=== PATIENT | male | born 1955 | race Caucasian/White ===

== ENCOUNTER 2016-08-16 03:27 | Inpatient (IN) | payer MEDICARE, OTHER ==
[~2016-08-16] VITALS: Ht 180.3 cm; Wt 130.2 kg
[~2016-08-16 03:27] MED LIST: ABILIFY; AMLO5TAB2 PO; AMOX250C PO; AMOX500C2 PO; ASP81CT PO; ASP81TEC PO; BP MED; CIPR500T78 PO; CITA-105 PO; CLN.2T PO; CLON-378 PO; DULO30CA PO; FURO20TA PO; FURO40TA4 PO; HCT25T PO; HYDR-3714 PO; HYDR118S10 PO; KCL10CCR PO; LEVO1CAP10 PO; LEVO80CA PO; LISI1TAB10 PO; LISI20TA PO; LORA1TAB PO; LSNP20T PO; METO100T2 PO; METO25TA2 PO; NFCHLORT25 PO; ONDA-42 SL; ONDN4T PO; POTA99TA15 PO; VILA40TA PO; [UNRECOGNIZED DRUG - CODE] PO
--- OUTSIDE RECORDS SUMMARY | 2016-08-16 03:35 | XMS REPORT ---
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
[2016-08-16] MEDS ORDERED: RT-ALBUTEROL SULF 2.5 MG/3 ML PRE-MIX VIAL ONE (03:38)
[2016-08-16] MEDS ORDERED: RT-ALBUTEROL SULF 2.5 MG/3 ML PRE-MIX VIAL INH STA (03:41)
[2016-08-16 03:57] LABS: BASOPHILS % (AUTO) 0 % (0-10); EOSINOPHILS # (AUTO) 0.2 10^3/uL (0.0-0.3); EOSINOPHILS % (AUTO) 1 % (0-10); LYMPHOCYTES # (AUTO) 2.2 X 10^3 (1.0-4.0); LYMPHOCYTES % (AUTO) 15 % (12-44); MEAN CORPUSCULAR HEMOGLOBIN 30 PG (25-34); MEAN CORPUSCULAR HGB CONC 35 G/DL (32-36); MEAN CORPUSCULAR VOLUME 84 FL (80-99); MEAN PLATELET VOLUME 9.6 FL (7.4-10.4); MONOCYTES # (AUTO) 0.8 X 10^3 (0.0-1.0); MONOCYTES % (AUTO) 5 % (0-12); NEUTROPHILS # (AUTO) 11.5 X 10^3 (1.8-7.8); NEUTROPHILS % (AUTO) 78 % (42-75); PLATELET COUNT 223 10^3/uL (130-400); RED BLOOD COUNT 5.17 10^6/uL (4.35-5.85); WHITE BLOOD COUNT 14.6 10^3/uL (4.3-11.0)
[2016-08-16 04:09] LABS: INR 1.1 (0.8-1.4); PROTHROMBIN TIME PATIENT 13.5 SEC (12.2-14.7)
[2016-08-16] MEDS ORDERED: CHLO25TA22 PO (04:09)
[2016-08-16] MEDS ORDERED: LISI40TA PO (04:09)
[2016-08-16] MEDS ORDERED: NFNEB10T PO (04:09)
[2016-08-16] MEDS ORDERED: FLUT1BLS IH (04:12)
[2016-08-16 04:16] LABS: BAND NEUTROPHILS 0 %; BASOPHILS % (MANUAL) 0 %; EOSINOPHILS % (MANUAL) 1 %; LYMPHOCYTES % (MANUAL) 5 %; NEUTROPHILS % (MANUAL) 84 %; REACTIVE LYMPHOCYTES 8 %
[2016-08-16 04:18] LABS: ALBUMIN 3.5 G/DL (3.2-4.5); CALCIUM 8.9 MG/DL (8.5-10.1); CREATININE SERUM 1.31 MG/DL (0.60-1.30); POTASSIUM 2.8 MMOL/L (3.6-5.0); TOTAL PROTEIN 6.3 G/DL (6.4-8.2)
--- NOTE | 2016-08-16 04:39 | ED Respiratory ---
General Chief Complaint: Respiratory Problems Stated Complaint: SOA Nursing Triage Note: Per [facility], pt called for SOA for 2nd night. Seen at [facility] today and rec'd Tori, not sure of CXR result. Pt has a temp between 101-102.0 to night. Mask placed on pt. Pt has not seen a Dr for 1 yr or over and reports he has been off all meds till all Rx's written 08/15/16 at [facility] Source: patient Exam Limitations: no limitations History of Present Illness Time seen by provider: 03:36 Initial Comments Here with report of shortness of air at night time mostly an worse tonight. Reports fever tonight. EMS was summoned because of shortness of air or cough. He was seen yesterday at the clinic and had chest x-ray done. He reports that the provider said he did not have CHF but is not sure if he has a pneumonia. Does admit to shortness of breath. Has history of COPD. He is intermittent with his visits with his doctor. Has new prescriptions for blood pressure medicines currently. Does report nausea but no vomiting. Denies diarrhea. Denies chest pain. Timing/Duration: getting worse Severity: moderate Prior Episodes/Possible Cause: occasional episodes Modifying Factors: Worse With Activity, Improves With Oxygen, Improves With Rest Associated Symptoms: No chest pain/soreness, fever/chills nasal congestion shortness of breath wheezing Allergies and Home Medications Allergies Coded Allergies: No Known Drug Allergies (Unverified , 05/12/13) Home Medications Chlorthalidone 25 Mg Tablet 12.5 MG PO DAILY (Reported) Fluticasone/Vilanterol 1 Each Blst.w.dev 1 EACH IH DAILY (Reported) Lisinopril 40 Mg Tablet 40 MG PO DAILY (Reported) Nebivolol HCl 10 Mg Tab 10 MG PO DAILY (Reported) Constitutional: see HPI chills fever EENTM: see HPI Respiratory: see HPI cough short of breath wheezing Cardiovascular: no symptoms reported Gastrointestinal: see HPINo constipation, No diarrhea Genitourinary: no symptoms reported Musculoskeletal: no symptoms reported Skin: no symptoms reported All Other Systems Reviewed Negative Unless Noted: Yes Past Ipkrvvh-Gwuecn-Kswdtn Hx Patient Social History Alcohol Use: Rarely Uses Recreational Drug Use: No Smoking Status: Never a Smoker 2nd Hand Smoke Exposure: No Recent Foreign Travel: No Contact w/Someone Who Travel: No Recent Infectious Disease Expo: No Recent Hopitalizations: No Immunizations Up To Date Tetanus Booster (TDap): Unknown PED Vaccines UTD: Yes Seasonal Allergies Seasonal Allergies: No Surgeries HX Surgeries: Yes (full dental extractions 12/31/13, right ankle) Respiratory Hx Respiratory Disorders: Yes Respiratory Disorders: COPD Cardiovascular Hx Cardiac Disorders: Yes ("had fluttering" in the past) Neurological Hx Neurological Disorders: No Reproductive System Hx Reproductive Disorders: No Sexually Transmitted Disease: No HIV/AIDS: No Genitourinary Hx Genitourinary Disorders: No Gastrointestinal Hx Gastrointestinal Disorders: No Musculoskeletal Hx Musculoskeletal Disorders: Yes Musculoskeletal Disorders: Arthritis Endocrine Hx Endocrine Disorders: No HEENT HX ENT Disorders: Yes (ALL TEETH REMOVED 12/31/13) Cancer Hx Cancer: No Psychosocial Hx Psychiatric Problems: Yes Behavioral Health Disorders: Depression Integumentary HX Skin/Integumentary Disorder: No Blood Transfusions Hx Blood Disorders: No Adverse Reaction to a Blood Tr: No Reviewed Nursing Assessment Reviewed/Agree w Nursing PMH: Yes Family Medical History Family Medial History: Family history: Cardiovascular disease 03 MOTHER ([place]) Myocardial infarction 03 MOTHER, Onset:80 ( FROM [place]) Physical Exam Vital Signs Vital Sign - Last 12Hours 08/16/16 03:35 Temp 102.6 Pulse 91 Resp 26 B/P 167/91 Pulse Ox 94 O2 Delivery Nasal Cannula O2 Flow Rate 3 Capillary Refill : Less Than 3 Seconds General Appearance: WD/WN mild distress HEENT: PERRL/EOMI pharynx normal Neck: full range of motion supple Respiratory: no accessory muscle use crackles (right basilar) wheezing (a few scattered) Cardiovascular: regular rate, rhythm no murmur Gastrointestinal: non tender soft Extremities: non-tender no pedal edema no calf tenderness Neurologic/Psychiatric: alert oriented x 3 Skin: normal color warm/dry Lymphatic: no adenopathy Focused Exam Lactic Acid Level Laboratory Tests Test 08/16/16 03:40 Alanine Aminotransferase (ALT/SGPT) 48U/L (0-55) Albumin 3.5G/DL (3.2-4.5) Alkaline Phosphatase 98U/L (40-136) Anion Gap 15MMOL/L (5-14) H Aspartate Amino Transf (AST/SGOT) 34U/L (5-34) BUN/Creatinine Ratio 13 Blood Urea Nitrogen 17MG/DL (7-18) Calcium Level 8.9MG/DL (8.5-10.1) Carbon Dioxide Level 27MMOL/L (21-32) Chloride Level 99MMOL/L (98-107) Creatinine 1.31MG/DL (0.60-1.30) H Estimat Glomerular Filtration Rate 55 Glucose Level 141MG/DL (70-105) H Lactic Acid Level 2.35MMOL/L (0.50-2.00) *H Potassium Level 2.8MMOL/L (3.6-5.0) L Sodium Level 141MMOL/L (135-145) Total Bilirubin 1.0MG/DL (0.1-1.0) Total Protein 6.3G/DL (6.4-8.2) L Progress/Results/Core Measures Results/Orders Lab Results Laboratory Tests Test 08/16/16 03:40 Range/Units Activated Partial Thromboplast Time 28 24-35 SEC Alanine Aminotransferase (ALT/SGPT) 48 0-55 U/L Albumin 3.5 3.2-4.5 G/DL Alkaline Phosphatase 98 40-136 U/L Anion Gap 15 H 5-14 MMOL/L Aspartate Amino Transf (AST/SGOT) 34 5-34 U/L BUN/Creatinine Ratio 13 Band Neutrophils 0 % Basophils # (Auto) 0.0 0.0-0.1 10^3/uL Basophils % (Manual) 0 % Basophils (%) (Auto) 0 0-10 % Blood Morphology Comment NORMAL Blood Urea Nitrogen 17 7-18 MG/DL Calcium Level 8.9 8.5-10.1 MG/DL Carbon Dioxide Level 27 21-32 MMOL/L Chloride Level 99 98-107 MMOL/L Creatinine 1.31 H 0.60-1.30 MG/DL Eosinophils # (Auto) 0.2 0.0-0.3 10^3/uL Eosinophils % (Manual) 1 % Eosinophils (%) (Auto) 1 0-10 % Estimat Glomerular Filtration Rate 55 Glucose Level 141 H 70-105 MG/DL Hematocrit 43 40-54 % Hemoglobin 15.3 13.3-17.7 G/DL INR Comment 1.1 0.8-1.4 Lactic Acid Level 2.35 *H 0.50-2.00 MMOL/L Lymphocytes # (Auto) 2.2 1.0-4.0 X 10^3 Lymphocytes % (Manual) 5 % Lymphocytes (%) (Auto) 15 12-44 % Mean Corpuscular Hemoglobin 30 25-34 PG Mean Corpuscular Hemoglobin Concent 35 32-36 G/DL Mean Corpuscular Volume 84 80-99 FL Mean Platelet Volume 9.6 7.4-10.4 FL Monocytes # (Auto) 0.8 0.0-1.0 X 10^3 Monocytes % (Manual) 2 % Monocytes (%) (Auto) 5 0-12 % Neutrophils # (Auto) 11.5 H 1.8-7.8 X 10^3 Neutrophils % (Manual) 84 % Neutrophils (%) (Auto) 78 H 42-75 % Platelet Count 223 130-400 10^3/uL Potassium Level 2.8 L 3.6-5.0 MMOL/L Prothrombin Time 13.5 12.2-14.7 SEC Reactive Lymphocytes 8 % Red Blood Count 5.17 4.35-5.85 10^6/uL Red Cell Distribution Width 14.0 10.0-14.5 % Sodium Level 141 135-145 MMOL/L Total Bilirubin 1.0 0.1-1.0 MG/DL Total Protein 6.3 L 6.4-8.2 G/DL White Blood Count 14.6 H 4.3-11.0 10^3/uL Micro Results Microbiology 08/16/16 Influenza Types A,B Antigen (THAO) - Final, Complete My Orders Orders-LIT EDWARDS MD Albuterol Pre-Mix Nebs (Rt) (Proventil P (08/16/16 03:38) Cbc With Automated Diff (08/16/16 03:41) Comprehensive Metabolic Panel (08/16/16 03:41) Lactic Acid Analyzer (08/16/16 03:41) Blood Culture (08/16/16 03:41) Sputum Culture (08/16/16 03:41) Ua Culture If Indicated (08/16/16 03:41) Protime With Inr (08/16/16 03:41) Partial Thromboplastin Time (08/16/16 03:41) Chest 1 View, Ap/Pa Only (08/16/16 03:41) O2 (08/16/16 03:41) Saline Lock/Iv-Start (08/16/16 03:41) Saline Lock/Iv-Start (08/16/16 03:41) Vital Signs Adult Sepsis Patie Q1HR (08/16/16 03:41) Remove Rings In Anticipation O (08/16/16 03:41) Influenza A And B Antigens (08/16/16 03:41) Albuterol Pre-Mix Nebs (Rt) (Proventil P (08/16/16 03:41) Svn Sm Volume Nebulizer Rt-Rfs (08/16/16 03:41) Manual Differential (08/16/16 03:40) Vital Signs/I&O Vital Sign - Last 12Hours 08/16/16 08/16/16 08/16/16 03:35 03:35 04:02 Temp 102.6 Pulse 91 Resp 26 B/P 167/91 Pulse Ox 94 94 96 O2 Delivery Nasal Cannula Nasal Cannula O2 Flow Rate 3 3 3 Blood Pressure Mean: 116 Progress Note : Progress Note Seen and evaluated. IV, labs, chest x-ray and UA ordered. Albuterol neb 2. This did help with his respiratory function. Lactic acid elevated at 2.35. Blood cultures pending. Levaquin 750 mg IV ordered. Blood pressure in good range to hypertensive but not hypotensive. No indication of septic shock. No indication of high volume fluid resuscitation at this time. Case discussed with Dr. Xiong at 0436. She accepts patient for admission, inpatient status. Due to patient's history of COPD and wheezing, Solu-Medrol 125 mg IV ordered. Discussed with patient about admission and he agrees with plan. Potassium 40 mEq by mouth given for noted hypokalemia. Diagnostic Imaging Diagonstic Imaging: Xray Plain Films/CT/US/NM/MRI: chest Comments Angelo pneumonia Departure Communication Time/Spoke to Admitting Phy: 04:36 Impression Impression: Primary Impression: Right lower lobe pneumonia Qualified Code: J18.1 - Lobar pneumonia, unspecified organism Additional Impression: Hypokalemia Disposition: ADMITTED INPATIENT Condition: Stable Decision to Admit Reason: Admit from ER (General) Decision to Admit/Date: Aug 16, 2016 Time/Decision to Admit Time: 04:36 Departure-Patient Inst. Referrals: [facility] (PCP/Family) Primary Care Physician LIT EDWARDS MD Aug 16, 2016 04:38
[2016-08-16] MEDS ORDERED: methylPREDNISolone 125 MG (Solu-MEDROL) VIAL IV STA (04:40)
[2016-08-16] MEDS ORDERED: LEVOFLOXACIN 750 MG/150 ML IV 150 ML IV STA (04:40)
[2016-08-16] MEDS ORDERED: KCL 10 MEQ TAB (MICRO K) PO ONE (05:15)
[2016-08-16] MEDS ORDERED: NS IV 1000 ML 1,000 ML ONE (05:38)
--- NOTE | 2016-08-16 06:10 | Diagnostic Imaging Report ---
INDICATION: Dyspnea and fever. 0427 hours Portable upright view of the chest is obtained. FINDINGS: Since 02/02/2014, there is persistent mild cardiomegaly. There has been development of perihilar atelectasis and/or pneumonitis, greater on the right. No pneumothorax or focal consolidation is seen. IMPRESSION: Right perihilar atelectasis and/or pneumonitis. Dictated by: Dictated on workstation # [id number]
[2016-08-16] MEDS ORDERED: NS IV 1000 ML 1,000 ML IV SCH ×2 (06:15→14:30)
[2016-08-16 06:34] LABS: BILIRUBIN,URINE NEGATIVE (NEGATIVE); KETONES,URINE NEGATIVE (NEGATIVE); LEUKOCYTE ESTERASE ,URINE NEGATIVE (NEGATIVE); NITRITE,URINE NEGATIVE (NEGATIVE); PH,URINE 5 (5-9); PROTEIN,URINE 3+ (NEGATIVE); UROBILINOGEN,URINE NORMAL (NORMAL)
[2016-08-16 06:44] LABS: HYALINE CASTS, URINE 0-2 /LPF; WBC,URINE 0-2 /HPF
[2016-08-16] MEDS ORDERED: CATHETER FLUSH 10 ML SYR IV PRN (06:45)
[2016-08-16] MEDS: NS IV 1000 ML 1,000 ML IV SCH ×6 (06:52→21:03)
[2016-08-16 08:00] VITALS: BP 140/69
[2016-08-16] MEDS ORDERED: RT-ALBUTEROL/IPRATROPIUM 3 ML (DUONEB) VIAL INH PRN ×2 (08:00→17:30)
[2016-08-16] MEDS ORDERED: FLU TRIvalent (5 YOA+) 2016-17 (AFLURIA) 0.5 ML IM ONE (08:45)
[2016-08-16] MEDS: POTASSIUM CL 10MEQ/50ML IVPB 50 ML IV SCH ×4 (10:25→18:33)
[2016-08-16] MEDS ORDERED: OSELTAMIVIR 30 MG (TAMIFLU) BOX OF 10 PO SCH (11:15)
[2016-08-16] MEDS ORDERED: VANCOMYCIN INJECTION 1,000 MG in NS (IVPB) 250 ML IV SCH (11:15)
[2016-08-16] MEDS ORDERED: VANCOMYCIN 2000 MG/NS 500 ML IVPB IV NR ×2 (11:21)
[2016-08-16 11:55] LABS: BASOPHILS % (AUTO) 0 % (0-10); EOSINOPHILS % (AUTO) 0 % (0-10); LYMPHOCYTES # (AUTO) 0.5 X 10^3 (1.0-4.0); LYMPHOCYTES % (AUTO) 5 % (12-44); MEAN CORPUSCULAR HEMOGLOBIN 29 PG (25-34); MEAN CORPUSCULAR HGB CONC 35 G/DL (32-36); MEAN CORPUSCULAR VOLUME 84 FL (80-99); MEAN PLATELET VOLUME 9.6 FL (7.4-10.4); MONOCYTES # (AUTO) 0.1 X 10^3 (0.0-1.0); MONOCYTES % (AUTO) 1 % (0-12); NEUTROPHILS # (AUTO) 10.9 X 10^3 (1.8-7.8); NEUTROPHILS % (AUTO) 94 % (42-75); PLATELET COUNT 202 10^3/uL (130-400); RED BLOOD COUNT 4.93 10^6/uL (4.35-5.85); WHITE BLOOD COUNT 11.5 10^3/uL (4.3-11.0)
[2016-08-16 12:00] VITALS: BP 139/66
[2016-08-16 12:17] LABS: CALCIUM 8.2 MG/DL (8.5-10.1); CREATININE SERUM 1.4 MG/DL (0.60-1.30); POTASSIUM 3.4 MMOL/L (3.6-5.0)
[2016-08-16] MEDS: CEFEPIME INJECTION 2,000 MG in NS (IVPB) 50 ML IV SCH ×2 (12:29→23:42)
[2016-08-16 14:09] LABS: CALCIUM 8.2 MG/DL (8.5-10.1); CREATININE SERUM 1.34 MG/DL (0.60-1.30); POTASSIUM 3.6 MMOL/L (3.6-5.0)
[2016-08-16] MEDS: methylPREDNISolone 125 MG (Solu-MEDROL) VIAL IVP SCH (15:23)
--- NOTE | 2016-08-16 15:37 | History & Physicial (CHS) ---
KANWAL GALVEZ MED STUDENT 08/16/16 1537: HPI History of Present Illness: 60 yo male w/pmh of HTN, COPD comes to ED for SOB, orthopnea and severe cough x 2 days. Went to clinic Monday morning and had CXR that was not suggestive of pneumonia and had Symbicort switched to Breo and BP medications increase. Patient continued with worsening dyspnea and admitted for RLL pneumonia. Today he reports no improvement with SOB when walking, wheezing, non productive cough , constipation that is chronic and abdominal distention with early satiety. He denies headache, sore throat or ear pain, chest pain, melena or tarry stools, changes in urination or dysuria or LE edema. Source: patient Exam Limitations: no limitations Date seen by provider: Aug 16, 2016 Time seen by provider: 11:00 Attending Physician Dora Oleary MD / Kanwal Galvez MD PGY 2 Family Medicine [facility] PCP juanpablo,[facility] Date of Admission Aug 16, 2016 at 04:40 Home Medications Home Medications Reviewed patient Home Medication Reconciliation Form Allergies Coded Allergies: No Known Drug Allergies (Unverified , 05/12/13) NJZ-[id number]-Vficxl Hx Patient Social History Alcohol Use: Denies Use Recreational Drug Use: No Smoking Status: Never a Smoker 2nd Hand Smoke Exposure: No Recent Foreign Travel: No Contact w/other who traveled: No Recent Hopitalizations: No Recent Infectious Disease Expo: No Physical Abuse Screen: No Sexual Abuse: No Immunizations Up To Date Tetanus Booster (TDap): Unknown Past Medical History Hypertension Dysthymia Depressive disorder Anxiety Hypokalemia Abnormal liver function testing Bilateral tinnitus Family Medical History Family History: Family history: Cardiovascular disease 03 MOTHER ([place]) Myocardial infarction 03 MOTHER, Onset:80 ( FROM [place]) No Family History of: Abdominal aortic aneurysm Dmitri's disease Alcoholism Aphasia Cancer Cancer of colon Cataract Chest pain Congenital heart disease Congestive heart failure Cystic fibrosis Dementia Dysphagia Family history: Allergy Family history: Alzheimer's disease Family history: Arthritis Family history: Asthma Family history: Breast disease Family history: Coronary thrombosis Family history: Diabetes mellitus Family history: Gastrointestinal disease Family history: Glaucoma Family history: Hypertension Family history: Osteoporosis Family history: Thyroid disorder Headache Hearing loss Heart disease Hereditary disease History of - anemia History of - disorder History of - respiratory disease History of drug abuse Human immunodeficiency virus (HIV) seropositivity Hypercholesterolemia Infertile Kidney disease Malignant neoplasm of lung Not obtainable due to adoption Parkinson's disease Prostate cancer Psychotic disorder Seizure disorder Stroke Tuberculosis Visual impairment Review of Systems ([facility]) Constitutional: chills fever malaise EENTM: tearing Respiratory: cough orthopnea short of breath wheezing Cardiovascular: palpitations Gastrointestinal: constipation loss of appetite Genitourinary: no symptoms reported Musculoskeletal: no symptoms reported Skin: no symptoms reported Psychiatric/Neurological: No Symptoms Reported All Other Systems Reviewed Negative Unless Noted: Yes Physical Exam-([facility]) Physical Exam Vital Signs VS - Last 72 Hours, by Label 08/16/16 08/16/16 08/16/16 08/16/16 03:35 03:35 04:02 05:11 Temp 102.6 101.3 Pulse 91 90 Resp 26 24 B/P 167/91 Pulse Ox 94 94 96 93 O2 Delivery Nasal Cannula Nasal Cannula O2 Flow Rate 3 3 3 3 08/16/16 08/16/16 08/16/16 08/16/16 05:11 05:20 07:53 08:00 Temp 101.3 99.1 Pulse 90 76 Resp 24 20 B/P 160/78 140/69 Pulse Ox 93 93 92 O2 Delivery Nasal Cannula Nasal Cannula Nasal Cannula O2 Flow Rate 3 2.00 2.00 08/16/16 08/16/16 08:00 12:00 Temp 98.0 Pulse 75 Resp 24 B/P 139/66 Pulse Ox 93 93 O2 Delivery Room Air Nasal Cannula O2 Flow Rate 2.00 Capillary Refill : NONELess Than 3 Seconds General Appearance: moderate distress obese Eyes: Bilateral Eye Normal Inspection HEENT: pharyngeal erythema Neck: full range of motion supple Respiratory: chest non-tender decreased breath sounds (Bilateral upper and mid lung martinez) wheezing (Right lower lung martinez) expiration Cardiovascular: regular rate, rhythm no edema Gastrointestinal: distended Back: no CVA tenderness Extremities: no pedal edema no calf tenderness Neurologic/Psychiatric: no motor/sensory deficits alert normal mood/affect oriented x 3 Skin: warm/dry damp Assessment/Plan Assessment/Plan Admission Dx 1. RLL pnemonia with Sepsis 2. COPD 3. HTN Plan 1. RLL pneumonia with sepsis - CXR with possible developing pneumonia - LA increased from admission to 8 -> 6 after IVF bolus - Blood cultures pending - s/p Levaquin - High risk due to COPD Plan - Continue Sepsis protocol - 30 cc/kg fluid bolus then maintenance IVF - Broaden Abx from Levaquin to include Cefepime and Vancomycin - Will add Tamiflu due to risk, sepsis and worsening cough, Influenza spot test can be negative in developing infection - f/u blood cultures - Sputum cultures ordered and in process of collection - VS per protocol - Repeat BMP now and will reevaluate in afternoon - Trend LA q 2hrs until normal 2. COPD - s/p IV steroids - RT protocol - continue Breo and Albuterol PRN - Pulmonary hygiene 3. HTN - Telemetry - Cont ACCOUNT MANAGEMENT ASSISTANT medications FEN: IVF,replace lytes as needed, Cardiac diet as tolerated Full Code DVT prophylaxis. Diagnosis/Problems: Clinical Quality Measures DVT/VTE Risk/Contraindication: Risk Factor Score Per Nursin RFS Level Per Nursing on Admit: 4+=Very High Copy Copies To 1: DORA OLEARY MD, BETHANY N MD 08/16/162039: Home Medications Allergies Coded Allergies: No Known Drug Allergies (Unverified , 05/12/13) UUS-Qrpxvn-Dcwahk Hx Family Medical History Family History: Family history: Cardiovascular disease 03 MOTHER ([place]) Myocardial infarction 03 MOTHER, Onset:80 ( FROM [place]) No Family History of: Abdominal aortic aneurysm [place]'s disease Alcoholism Aphasia Cancer Cancer of colon Cataract Chest pain Congenital heart disease Congestive heart failure Cystic fibrosis Dementia Dysphagia Family history: Allergy Family history: Alzheimer's disease Family history: Arthritis Family history: Asthma Family history: Breast disease Family history: Coronary thrombosis Family history: Diabetes mellitus Family history: Gastrointestinal disease Family history: Glaucoma Family history: Hypertension Family history: Osteoporosis Family history: Thyroid disorder Headache Hearing loss Heart disease Hereditary disease History of - anemia History of - disorder History of - respiratory disease History of drug abuse Human immunodeficiency virus (HIV) seropositivity Hypercholesterolemia Infertile Kidney disease Malignant neoplasm of lung Not obtainable due to adoption Parkinson's disease Prostate cancer Psychotic disorder Seizure disorder Stroke Tuberculosis Visual impairment Physical Exam-([facility]) Physical Exam Vital Signs VS - Last 72 Hours, by Label 08/16/16 08/16/16 08/16/16 08/16/16 03:35 03:35 04:02 05:11 Temp 102.6 101.3 Pulse 91 90 Resp 26 24 B/P 167/91 Pulse Ox 94 94 96 93 O2 Delivery Nasal Cannula Nasal Cannula O2 Flow Rate 3 3 3 3 08/16/16 08/16/16 08/16/16 08/16/16 05:11 05:20 07:53 08:00 Temp 101.3 99.1 Pulse 90 76 Resp 24 20 B/P 160/78 140/69 Pulse Ox 93 93 92 O2 Delivery Nasal Cannula Nasal Cannula Nasal Cannula O2 Flow Rate 3 2.00 2.00 08/16/16 08/16/16 08/16/16 08/16/16 08:00 12:00 16:00 16:51 Temp 98.0 97.9 Pulse 75 73 Resp 24 22 B/P 139/66 159/74 Pulse Ox 93 93 92 87 O2 Delivery Room Air Nasal Cannula Nasal Cannula O2 Flow Rate 2.00 2.00 08/16/16 08/16/16 16:51 18:42 Pulse Ox 87 92 O2 Flow Rate 3.00 Copy Copies To 1: DORA OLEARY MD Supervisory-Addendum Brief Supervisory Addendum Patient seen and evaluated with Geneva Galvez MD, PGY2. Agree with documentation with changes/additions as noted: 60 yo male admitted with suspected pneumonia and sepsis, however at 1015 lactic acid up to 8 suggesting severe sepsis. He had already been started on 30 ml/kg fluid bolus (3.7 liters) after LA slightly increased at 6 am. Lactic acid trending down with the fluid bolus and antibiotics were broadened given the significant worsening and Tamiflu added due to symptoms and fever suggestive of flu and CXR not showing clear pneumonia. KANWAL GALVEZ MED STUDENT Aug 16, 2016 15:37 DORA OLEARY MD Aug 16, 2016 20:40
[2016-08-16 16:00] VITALS: BP 159/74
[2016-08-16] MEDS: RT-ALBUTEROL/IPRATROPIUM 3 ML (DUONEB) VIAL INH SCH ×2 (18:41→21:57)
[2016-08-16 20:00] VITALS: BP 151/80
[2016-08-16 22:59] LABS: ABG BASE EXCESS -3.7 MMOL/L (-2.5-2.5); ABG HCO3 21 MMOL/L (23-27); ABG OXYGEN SATURATION 98 % (94-100); ABG PCO2 35 MMHG (35-45); ABG PH 7.38 (7.37-7.43); ABG PO2 87 MMHG (79-93); ABG TCO2 21.8 MMOL/L (21.0-31.0)
[2016-08-16 23:00] LABS: ALLENS TEST YES-POS; PATIENT TEMP 97.6
[2016-08-16] MEDS: OSELTAMIVIR 75 MG (TAMIFLU) BOX OF 10 PO SCH (23:43)
[2016-08-17] VITALS (20 sets, daily range): BP systolic 90–226; BP diastolic 50–111
[2016-08-17] MEDS: VANCOMYCIN 1500 MG/NS 500 ML IVPB IV SCH ×6 (01:25→23:02)
[2016-08-17] MEDS: RT-ALBUTEROL/IPRATROPIUM 3 ML (DUONEB) VIAL INH SCH ×6 (02:09→22:15)
[2016-08-17 04:33] LABS: BASOPHILS % (AUTO) 0 % (0-10); EOSINOPHILS % (AUTO) 0 % (0-10); LYMPHOCYTES % (AUTO) 5 % (12-44); MEAN CORPUSCULAR HEMOGLOBIN 29 PG (25-34); MEAN CORPUSCULAR HGB CONC 35 G/DL (32-36); MEAN CORPUSCULAR VOLUME 85 FL (80-99); MEAN PLATELET VOLUME 9.8 FL (7.4-10.4); MONOCYTES % (AUTO) 5 % (0-12); NEUTROPHILS # (AUTO) 16.7 X 10^3 (1.8-7.8); NEUTROPHILS % (AUTO) 89 % (42-75); PLATELET COUNT 221 10^3/uL (130-400); RED BLOOD COUNT 4.73 10^6/uL (4.35-5.85); RED CELL DISTRIBUTION WIDTH 14.2 % (10.0-14.5); WHITE BLOOD COUNT 18.7 10^3/uL (4.3-11.0)
[2016-08-17] MEDS ORDERED: D5W IV SCH (04:40)
[2016-08-17] MEDS ORDERED: LEVOFLOXACIN 750 MG/150 ML IV SCH (04:40)
[2016-08-17 05:01] LABS: ALANINE AMINOTRANSFERASE 43 U/L (0-55); ALBUMIN 3.3 G/DL (3.2-4.5); ANION GAP 12 MMOL/L (5-14); ASPARTATE AMINO TRANSFERASE 38 U/L (5-34); BILIRUBIN,TOTAL 0.8 MG/DL (0.1-1.0); BLOOD UREA NITROGEN 19 MG/DL (7-18); BUN/CREATININE RATIO 16; CALCIUM 8.5 MG/DL (8.5-10.1); CARBON DIOXIDE 22 MMOL/L (21-32); CHLORIDE 109 MMOL/L (98-107); CREATININE SERUM 1.21 MG/DL (0.60-1.30); GFR ESTIMATED > 60; GLUCOSE 175 MG/DL (70-105); POTASSIUM 3.5 MMOL/L (3.6-5.0); SODIUM 143 MMOL/L (135-145); TOTAL PROTEIN 6.5 G/DL (6.4-8.2)
[2016-08-17 05:25] LABS: BAND NEUTROPHILS 3 %; BASOPHILS % (MANUAL) 0 %; EOSINOPHILS % (MANUAL) 0 %; LYMPHOCYTES % (MANUAL) 6 %; NEUTROPHILS % (MANUAL) 84 %; REACTIVE LYMPHOCYTES 2 %
[2016-08-17] MEDS: methylPREDNISolone 125 MG (Solu-MEDROL) VIAL IVP SCH ×3 (05:33→18:13)
[2016-08-17] MEDS ORDERED: RT-ADVAIR HFA 115/21 MCG PER PUFF IH SCH (08:00)
[2016-08-17] MEDS: NS IV 1000 ML 1,000 ML IV SCH ×3 (09:15→23:49)
[2016-08-17] MEDS ORDERED: KCL 20 MEQ TAB (K-DUR) PO NR (09:40)
[2016-08-17] MEDS ORDERED: FUROSEMIDE 40 MG/4 ML INJ (LASIX) IVP NR (09:40)
[2016-08-17] MEDS: CHLORTHALIDONE 25 MG (HYGROTON) TABLET PO SCH (09:44)
[2016-08-17] MEDS: NEBIVOLOL 5 MG TAB (BYSTOLIC) PO SCH (09:45)
[2016-08-17] MEDS: lisINopril 20 MG (ZESTRIL) TAB PO SCH (09:45)
[2016-08-17] MEDS: OSELTAMIVIR 75 MG (TAMIFLU) BOX OF 10 PO SCH ×2 (09:45→22:07)
[2016-08-17] MEDS: CEFEPIME INJECTION 2,000 MG in NS (IVPB) 50 ML IV SCH ×2 (09:45→22:07)
[2016-08-17] MEDS ORDERED: TROUGH ORDER-PHARMACY XX NR (10:00)
[2016-08-17] MEDS ORDERED: CATHETER FLUSH 10 ML SYR IV PRN (10:45)
[2016-08-17] MEDS ORDERED: IOHEXOL 350 MG/ML 150 ML (OMNIPAQUE 350) VIAL IV ONE (10:45)
[2016-08-17] MEDS ORDERED: NS 100 ML (IVPB) BAG IV ONE (10:45)
[2016-08-17] MEDS ORDERED: LORazepam INJ 2 MG/ML (ATIVAN) VIAL IVP ONE (11:15)
--- NOTE | 2016-08-17 11:59 | Diagnostic Imaging Report ---
PROCEDURE: CT angiography of the chest with contrast. TECHNIQUE: Multiple contiguous axial images were obtained through the chest after uneventful bolus administration of intravenous contrast. Reconstructed CTA MIP acquisitions were also performed. INDICATION: Worsening shortness of breath. Hemoptysis. CONTRAST: 14 mL of Omnipaque 350 was administered intravenously. COMPARISON: 02/02/2014. FINDINGS: The pulmonary arteries are well opacified. There is, however, respiratory motion artifact due to the patient's inability to hold his breath well for the exam as well as suboptimal evaluation of the distal subsegmental branches, particularly in the lung bases. The central pulmonary arteries to the lobar and most of the segmental branches demonstrate satisfactory opacification with no evidence of pulmonary embolism. The thoracic aorta is normal in caliber. There is no dissection. The heart size is mildly enlarged with no significant pericardial effusion. There are bilateral small pleural effusions, more prominent on the right side. There are bilateral perihilar patchy groundglass opacities seen with relative sparing of the periphery of the lungs. The abnormality also involves the bases and upper lung zones, more prominent on the right side. The findings could relate to pulmonary hemorrhage, edema, or infection. There is no mediastinal mass and no significantly enlarged mediastinal or hilar lymph nodes. No axillary lymphadenopathy. There is a partially visualized cystic lesion in the right kidney measuring 2.8 cm with a similar finding on the 2013 exam. There is diffuse decreased attenuation in the liver, compatible with diffuse fatty infiltration. The osseous structures appear grossly unremarkable. IMPRESSION: 1. Respiratory motion artifact prevents accurate evaluation of the distal branches, particularly at the subsegmental level. No evidence of pulmonary embolism in the central pulmonary artery branches. 2. Bilateral predominantly groundglass opacities are seen which may relate to pulmonary hemorrhage, edema, or atypical infection. 3. Bilateral small pleural effusions, slightly larger on the right side. 4. Hepatic steatosis. Dictated by: Dictated on workstation # [id number]
[2016-08-17] MEDS ORDERED: MIDAZOLAM 5 MG/5 ML (VERSED) VIAL IJ ONE (12:00)
[2016-08-17] MEDS ORDERED: SUCCINYLCHOLINE INJ 100 MG/5 ML SYR INJ ONE (12:00)
[2016-08-17] MEDS ORDERED: ROCURONIUM 50 MG/5 ML (ZEMURON) VIAL IV ONE (12:00)
[2016-08-17 12:49] LABS: ABG BASE EXCESS -3.8 MMOL/L (-2.5-2.5); ABG HCO3 20 MMOL/L (23-27); ABG OXYGEN SATURATION 95 % (94-100); ABG PCO2 35 MMHG (35-45); ABG PH 7.38 (7.37-7.43); ABG PO2 72 MMHG (79-93); ABG TCO2 21.4 MMOL/L (21.0-31.0)
[2016-08-17 12:50] LABS: ALLENS TEST POSITIVE; PATIENT TEMP 99.3
--- NOTE | 2016-08-17 12:55 | Progress Note (SOAP) ---
JEANETTE GALVEZ MED STUDENT 08/17/16 1255: Subjective Subjective/Events-last exam Patient with BPAP and feeling worse today with increase in cough, blood tinged sputum, SOB and dry mouth. He was not able to sleep much last night due to bipap and increased WOB. Distention is about baseline with a normal brown BM yesterday. He denies headache, visual changes, chest pain or pleuritic pain, LE edema. Date seen by provider: Aug 17, 2016 Time seen by provider: 10:12 Review of Systems General: Chills Fatigue Malaise Appetite (decreased) HEENT: No Head Aches, No Visual Changes, No Sinus Congestion, Post Nasal Drip Sore Throat Pulmonary: Dyspnea Cough Cardiovascular: : OrthopneaNo: Chest Pain, Edema, Lt Headedness Gastrointestinal: No: Abdominal Pain, Constipation, Diarrhea, Nausea, Vomiting Genitourinary: No Dysuria, No Frequency, No Incontinence Musculoskeletal: : back pain Neurological: No: Confusion, Incoordination, Weakness Objective Exam Last Set of Vital Signs Vital Signs Date Time Temp Pulse Resp B/P Pulse Ox O2 Delivery O2 Flow Rate FiO2 08/17/16 09:43 92 26 93 50.00 08/17/16 08:00 98.5 174/94 NIV/Bilevel 08/17/16 06:45 40 Capillary Refill : NONELess Than 3 Seconds I&O Intake and Output 08/17/16 00:00 Intake Total 6210 ml Output Total 700 ml Balance 5510 ml Intake Oral 1440 ml IV Total 4770 ml Output Urine Total 700 ml # Voids 2 General: Alert, Oriented X3, Cooperative, Moderate Distress HEENT: Atraumatic, Other (dry mucous membranes) Neck: Supple Lungs: Other (Coarse breath sounds, crackles in bilateral bases and exp wheezing in middle lung martinez bilateral) Heart: Regular Rate Abdomen: Normal Bowel Sounds, Soft, Other (distended with no tenderness) Extremities: No Edema Skin: Other (bilateral upper arm redness, flushing with no rash or petechia noted) Neuro: Normal Gait, Normal Speech, Normal Tone, Sensation Intact Psych/Mental Status: Mental Status NL, Mood NL Results/Procedures Lab Laboratory Tests 08/16/16 13:47: Anion Gap 15H, BUN/Creatinine Ratio 12, Blood Urea Nitrogen 16, Calcium Level 8.2L, Carbon Dioxide Level 18L, Chloride Level 105, Creatinine 1.34H, Estimat Glomerular Filtration Rate 54, Glucose Level 352H, Lactic Acid Level 4.40*H, Potassium Level 3.6, Sodium Level 138 08/16/16 21:44: Lactic Acid Level 3.54*H 08/16/16 22:55: Mati Test YES-POS, Arterial Blood Base Excess -3.7L, Arterial Blood HCO3 21L, Arterial Blood Oxygen Saturation 98, Arterial Blood Partial Pressure CO2 35, Arterial Blood Partial Pressure O2 87, Arterial Blood Total CO2 21.8, Arterial Blood pH 7.38, Blood Gas Inspired Oxygen 40% BIPAP, Blood Gas Patient Temperature 97.6, Blood Gas Puncture Site LRAD, Blood Gas Ventilator Setting NO 08/16/16 23:40: Lactic Acid Level 3.88*H 08/17/16 02:10: Lactic Acid Level 2.74*H 08/17/16 04:13: Lactic Acid Level 2.85*H, Alanine Aminotransferase (ALT/SGPT) 43, Albumin 3.3, Alkaline Phosphatase 74, Anion Gap 12, Aspartate Amino Transf (AST/SGOT) 38H, BUN/Creatinine Ratio 16, Band Neutrophils 3, Basophils # (Auto) 0.0, Basophils % (Manual) 0, Basophils (%) (Auto) 0, Blood Morphology Comment NORMAL, Blood Urea Nitrogen 19H, Calcium Level 8.5, Carbon Dioxide Level 22, Chloride Level 109H, Creatinine 1.21, Eosinophils # (Auto) 0.0, Eosinophils % (Manual) 0, Eosinophils (%) (Auto) 0, Estimat Glomerular Filtration Rate > 60, Glucose Level 175H, Hematocrit 40, Hemoglobin 13.9, Lymphocytes # (Auto) 1.0, Lymphocytes % (Manual) 6, Lymphocytes (%) (Auto) 5L, Mean Corpuscular Hemoglobin 29, Mean Corpuscular Hemoglobin Concent 35, Mean Corpuscular Volume 85, Mean Platelet Volume 9.8, Monocytes # (Auto) 1.0, Monocytes % (Manual) 5, Monocytes (%) (Auto) 5, Neutrophils # (Auto) 16.7H, Neutrophils % (Manual) 84, Neutrophils (%) (Auto) 89H, Platelet Count 221, Potassium Level 3.5L, Reactive Lymphocytes 2, Red Blood Count 4.73, Red Cell Distribution Width 14.2, Sodium Level 143, Total Bilirubin 0.8, Total Protein 6.5, White Blood Count 18.7H 08/17/16 09:57: Lactic Acid Level 3.75*H, Vancomycin Level Trough 17.2 08/17/16 12:25: 08/17/16 12:43: Microbiology 08/16/16 Blood Culture - Preliminary, Resulted No growth 08/16/16 Influenza Types A,B Antigen (THAO) - Final, Complete Radiology CT chest ordered Vital Signs Date Time Temp Pulse Resp B/P Pulse Ox O2 Delivery O2 Flow Rate FiO2 08/17/16 09:43 92 26 93 50.00 08/17/16 08:12 103 30 88 40.00 08/17/16 08:00 98.5 75 26 174/94 95 NIV/Bilevel 08/17/16 06:45 96 40 08/17/16 06:30 79 25 95 40.00 08/17/16 05:29 79 30 96 40.00 08/17/16 04:00 97.5 76 26 155/77 97 NIV/Bilevel 08/17/16 03:58 79 27 96 40.00 08/17/16 02:09 85 20 94 40.00 08/17/16 00:16 31 40.00 08/17/16 00:00 98.5 78 25 166/81 97 NIV/Bilevel 08/16/16 22:55 24 40.00 08/16/16 21:59 90 5.00 08/16/16 21:00 Nasal Cannula 5.00 08/16/16 20:00 98.4 86 22 151/80 94 Nasal Cannula 2.00 08/16/16 18:42 92 08/16/16 16:51 87 3.00 08/16/16 16:51 87 08/16/16 16:00 97.9 73 22 159/74 92 Nasal Cannula 2.00 I & O 08/17/16 07:00 Intake Total 7325 ml Output Total 1300 ml Balance 6025 ml Assessment/Plan Assessment/Plan Admission Dx 1. RLL pnemonia with Sepsis 2. COPD 3. HTN Plan 1. RLL pneumonia with sepsis - CXR with possible developing pneumonia - LA increased from admission to 8 -> 2 after IVF bolus yesterday - Blood cultures pending (NGTD) - s/p Levaquin in ED - 08/16 Cefepime, Vancomycin started and continue Levaquin - 08/16 Tamiflu started to cover for atypical agents - High risk due to COPD Plan - Continue Sepsis protocol - cont maintenance IVF - once dose of 20 mg IV Lasix - cont Levaquin, Cefepime, Vancomycin and Tamiflu - Will order Urine Strep ag and Urine Legionella ag (1-2 days for results) - Will order Respiratory Virus Panel - f/u blood cultures - Sputum cultures ordered and in process of collection - VS per protocol - Daily BMP - Trend LA q 2hrs until normal - CT chest ordered for further evaluation of blood tinged sputum - Pt will be moved to ICU as in morning rounds continued with increased WOB - KUB to r/o GI cause for exacerbated lactic acidosis given constipation on admission 2. COPD - s/p IV steroids and will increase dose today - RT protocol - continue Breo and Albuterol PRN - Pulmonary hygiene 3. HTN - Telemetry - Cont UROLOGIST PHYSICIAN medications FEN: IVF below maintenance dose,replace lytes as needed, Cardiac diet as tolerated Full Code DVT prophylaxis. Patient seen and discussed with Dr. Oleary Diagnosis/Problems: Clinical Quality Measures DVT/VTE Risk/Contraindication: Risk Factor Score Per Nursin RFS Level Per Nursing on Admit: 4+=Very High DORA OLEARY MD 08/17/16 1450: Supervisory-Addendum Brief Supervisory Addendum Patient seen and personally examined today with PGY-2 Geneva Galvez MD. This morning on my exam he was in moderate distress with marked increased work of breathing and tachycardia while on Bipap with 50% FiO2. Lung sounds revealed bilateral ronchi. He has been coughing up blood tinged mucous. He has been afebrile and his lactic acid was trending down, but has started to increase again in spite of him being hypertensive. ICU transfer this am and CT chest ordered and he was unable to tolerate without pretreatment, given 0.5 mg ativan IV which actually improved his clinical status significantly with decreased work of breathing and adequate oxygenation on his current bipap settings, so much so he was requesting to trial off of bipap and eat. Given his continued lactic acidosis (although less than 4, so not clearly indicating shock at this time) as well as deteriorating respiratory status (in spite of essentially normal ABG when started on bipap last night) the following changes were made: transfer to ICU, stat CT of chest, increase solumedrol dose, IV lasix 20 mg x 1 for possible pulmonary edema, continue vanc, cefepime, levofloxacin, and oseltamavir (although rapid flu negative, concern due to symptoms and atypical chest x-ray findings). Blood culture no growth to date. Will check urine legionella and strep antigens and respiratory viral panel. Consult eICU. Discussed with patient his status and he agrees he does want intubation should it become necessary. JEANETTE GALVEZ MED STUDENT Aug 17, 2016 12:55 DORA OLERAY MD Aug 17, 2016 14:50
[2016-08-17] MEDS ORDERED: LORazepam INJ 2 MG/ML (ATIVAN) VIAL ONE (14:42)
[2016-08-17] MEDS ORDERED: LORazepam INJ 2 MG/ML (ATIVAN) VIAL IVP NR (14:45)
[2016-08-17] MEDS ORDERED: LIDOCAINE 1% INJ 20 ML (XYLOCAINE) VIAL ONE (16:43)
--- NOTE | 2016-08-17 17:49 | Diagnostic Imaging Report ---
INDICATION: Abdominal distention and pain. DISCUSSION: Three supine views of the abdomen were obtained, no comparison. Cardiomegaly is noted. Dense consolidation is noted within the lungs, right greater than left. No pleural fluid. Exam is limited due to patient body habitus and portable technique. There is gas and stool noted within the colon. No obvious abnormal small bowel loops are identified. No evidence of pneumatosis or pneumoperitoneum on this supine exam. No unexpected radiopaque foreign body. No acute osseous abnormality. IMPRESSION: 1. Limited exam. Unremarkable bowel gas pattern. 2. Pulmonary infiltrates. Dictated by: Dictated on workstation # [id number]
--- NOTE | 2016-08-17 17:49 | Diagnostic Imaging Report ---
INDICATION: Dyspnea and fever. Central line placement. DISCUSSION: Single portable upright view of the chest was obtained, comparison 08/16/2016. New left subclavian central venous catheter with tip in the mid SVC in good position. Interval development of dense pulmonary infiltrates, right greater than left, which is nonspecific and could represent edema, infection, or ARDS. Mild cardiomegaly is stable. No pleural fluid or pneumothorax. IMPRESSION: 1. Significantly worsening dense pulmonary infiltrates. Cardiomegaly is stable. 2. New left central venous catheter with tip in the mid SVC. No pneumothorax. Dictated by: Dictated on workstation # [id number]
[2016-08-17] MEDS: ENOXAPARIN 40 MG/0.4 ML (LOVENOX) SYR SC SCH (17:57)
[2016-08-17] MEDS ORDERED: LORazepam INJ 2 MG/ML (ATIVAN) VIAL IVP PRN (18:23)
--- NOTE | 2016-08-17 19:49 | Physician Progress Note ---
Progress Note Assessment/Plan Events since last exam Continues to have significant respiratory distress, requiring up to 70% FiO2 on bipap. Central line placed and eICU consulted. Lactic acid continues to fluctuate up and down but remains below 4 and he is hypertensive. CT with no evidence of PE but bilateral ground glass opacities related to edema versus hemorrhage versus atypical infection. Currently he states he is feeling better and is really wanting to eat something. He is in mild to moderate distress with bipap in place. Assessment/Plan eICU consulted, recommended making ativan scheduled, no other new recommendations at this time, they will follow for orders tonight Bipap settings adjusted per RT with increased pressure (16/12), remains at 70% FiO2 Minimal response to furosemide, but was small dose, consider repeat if status worsening Continue current antimicrobials and monitor closely Consider echocardiogram to look for possible cardiogenic edema if not improving overnight, will check BNP with next lactic acid Vitals Last set of Vitals Signs Vital Signs Date Time Temp Pulse Resp B/P Pulse Ox O2 Delivery O2 Flow Rate FiO2 08/17/16 18:27 89 40 89 70.00 08/17/16 18:15 165/101 NIV/Bilevel 08/17/16 16:29 100.1 08/17/16 06:45 40 I&O I&O Intake and Output 08/17/16 00:00 Intake Total 6210 ml Output Total 700 ml Balance 5510 ml Intake Oral 1440 ml IV Total 4770 ml Output Urine Total 700 ml # Voids 2 Labs Laboratory Tests 08/16/16 21:44: Lactic Acid Level 3.54*H 08/16/16 22:55: Mati Test YES-POS, Arterial Blood Base Excess -3.7L, Arterial Blood HCO3 21L, Arterial Blood Oxygen Saturation 98, Arterial Blood Partial Pressure CO2 35, Arterial Blood Partial Pressure O2 87, Arterial Blood Total CO2 21.8, Arterial Blood pH 7.38, Blood Gas Inspired Oxygen 40% BIPAP, Blood Gas Patient Temperature 97.6, Blood Gas Puncture Site LRAD, Blood Gas Ventilator Setting NO 08/16/16 23:40: Lactic Acid Level 3.88*H 08/17/16 02:10: Lactic Acid Level 2.74*H 08/17/16 04:13: Alanine Aminotransferase (ALT/SGPT) 43, Albumin 3.3, Alkaline Phosphatase 74, Anion Gap 12, Aspartate Amino Transf (AST/SGOT) 38H, BUN/Creatinine Ratio 16, Band Neutrophils 3, Basophils # (Auto) 0.0, Basophils % (Manual) 0, Basophils (% ) (Auto) 0, Blood Morphology Comment NORMAL, Blood Urea Nitrogen 19H, Calcium Level 8.5, Carbon Dioxide Level 22, Chloride Level 109H, Creatinine 1.21, Eosinophils # (Auto) 0.0, Eosinophils % (Manual) 0, Eosinophils (%) (Auto) 0, Estimat Glomerular Filtration Rate > 60, Glucose Level 175H, Hematocrit 40, Hemoglobin 13.9, Lactic Acid Level 2.85*H, Lymphocytes # (Auto) 1.0, Lymphocytes % (Manual) 6, Lymphocytes (%) (Auto) 5L, Mean Corpuscular Hemoglobin 29, Mean Corpuscular Hemoglobin Concent 35, Mean Corpuscular Volume 85, Mean Platelet Volume 9.8, Monocytes # (Auto) 1.0, Monocytes % (Manual) 5, Monocytes (%) (Auto) 5, Neutrophils # (Auto) 16.7H, Neutrophils % (Manual) 84, Neutrophils (%) (Auto) 89H, Platelet Count 221, Potassium Level 3.5L, Reactive Lymphocytes 2, Red Blood Count 4.73, Red Cell Distribution Width 14.2, Sodium Level 143, Total Bilirubin 0.8, Total Protein 6.5, White Blood Count 18.7H 08/17/16 09:57: Lactic Acid Level 3.75*H, Vancomycin Level Trough 17.2 08/17/16 12:25: Lactic Acid Level 3.95*H 08/17/16 12:43: Mati Test POSITIVE, Arterial Blood Base Excess -3.8L, Arterial Blood HCO3 20L, Arterial Blood Oxygen Saturation 95, Arterial Blood Partial Pressure CO2 35, Arterial Blood Partial Pressure O2 72L, Arterial Blood Total CO2 21.4, Arterial Blood pH 7.38, Blood Gas Inspired Oxygen 50% F102, Blood Gas Patient Temperature 99.3, Blood Gas Puncture Site RIGHT WRIST, Blood Gas Ventilator Setting NO 08/17/16 15:55: Lactic Acid Level 3.28*H 08/17/16 18:20: Lactic Acid Level 3.69*H Microbiology 08/16/16 Blood Culture - Preliminary, Resulted No growth 08/16/16 Influenza Types A,B Antigen (THAO) - Final, Complete Clinical Quality Measures DVT/VTE Risk/Contraindication: Risk Factor Score Per Nursin RFS Level Per Nursing on Admit: 4+=Very High DORA OLEARY MD Aug 17, 2016 7:48 pm
[2016-08-17] MEDS ORDERED: NS IV 500 ML 500 ML ONE (20:54)
[2016-08-17] MEDS ORDERED: PROPOFOL DRIP (ICU) 100 ML IV ONE (21:00)
[2016-08-17] MEDS ORDERED: FUROSEMIDE 40 MG/4 ML INJ (LASIX) ONE (21:45)
--- NOTE | 2016-08-17 21:47 | Anesthesia-Procedure Note ---
Procedure Start/Stop Time Date of Procedure: Aug 17, 2016 Start Time: 21:10 Brief History Impending respiratory failure Stop Time: 21:35 Procedures/Interventions RSI: Yes 100% pre-Ox, [id number]: Yes Intubation Method: nasotracheal Videoscope used: Yes (Gidescope) Grade View: 1 Medications: Propofol (200), Rocuronium (30), Succinylcholine (100), Versed (2) Mask Ventilation: positive Positive End Tide CO2: Yes Breath Sounds after Intubation: bilateral-equal ETT Securred @ (cm): 25 Intubated with ease: Yes Intubation Complications: no complications Post Intubation Xray-done: Yes Post Procedure Smooth Intubations without difficulty. [place] secretions noted coming up OETT upon intubation. Patient O2 Sat 88% on biPap. Post intubation sat at 76%. Care turned over to: Fay ESTEVEZ Arterial Line Catheter: 20G Type: Radial Location: Left Procedure: prepped, draped in sterile fashion, good wave-form was obtained, patient tolerated procedure well, no immediate complications, post procedure area cleaned, post procedure dressing applied CHEVY WASHBURN CRNA Aug 17, 2016 21:47
--- NOTE | 2016-08-17 21:49 | Diagnostic Imaging Report ---
Indication: Dyspnea, intubation. Discussion: Single portable upright view of the chest was obtained, comparison earlier same date. Endotracheal tube in good position with tip in the midtrachea. Left-sided central venous catheter stable. Cardiomegaly is stable. Extensive bilateral pulmonary infiltrates, right greater than left, stable. No pleural fluid or pneumothorax. Impression: 1. Endotracheal tube in good position. 2. Extensive pulmonary infiltrates, stable. Dictated by: Dictated on workstation # [id number]
[2016-08-17] MEDS ORDERED: LORazepam INJ 2 MG/ML (ATIVAN) VIAL IV PRN (22:00)
[2016-08-17] MEDS ORDERED: fentaNYL INJECTION 100 MCG/2 ML AMP IV PRN (22:00)
[2016-08-17] MEDS: PANTOPRAZOLE 40 MG/10 ML (PROTONIX) VIAL IV SCH (22:12)
[2016-08-17] MEDS ORDERED: fentaNYL INJECTION 100 MCG/2 ML AMP IV ONE (22:15)
[2016-08-17] MEDS ORDERED: FUROSEMIDE 40 MG/4 ML INJ (LASIX) IV ONE (22:15)
[2016-08-17] MEDS ORDERED: D5W IV SOLUTION (EXCEL) 250 ML IV ONE (23:07)
[2016-08-17] MEDS ORDERED: NOREPINEPHRINE 4 MG/4 ML (LEVOPHED) AMP IV ONE (23:07)
[2016-08-17 23:35] LABS: CALCIUM 7.8 MG/DL (8.5-10.1); CREATININE SERUM 1.45 MG/DL (0.60-1.30); MAGNESIUM 1.4 MG/DL (1.8-2.4); POTASSIUM 3.5 MMOL/L (3.6-5.0)
[2016-08-17 23:48] LABS: TROPONIN I 0.31 NG/ML (<0.30)
[2016-08-17] MEDS: inSUlin ASPART (NovoLOG) 1 UNIT/0.01 ML (CHARGE PER UNIT) SC SCH (23:58)
[2016-08-18] VITALS (21 sets, daily range): BP systolic 95–166; BP diastolic 50–81
[2016-08-18] MEDS ORDERED: NOREPINEPHRINE 4 MG in D5W IV SOLUTION (EXCEL) 250 ML IV SCH (00:30)
[2016-08-18] MEDS: MAGNESIUM 1 GM/100 ML IVPB 100 ML IV SCH ×4 (01:05→02:39)
[2016-08-18] MEDS: POTASSIUM CL 10MEQ/50ML IVPB 50 ML IV SCH ×6 (01:05→08:21)
[2016-08-18] MEDS: RT-ALBUTEROL/IPRATROPIUM 3 ML (DUONEB) VIAL INH SCH ×3 (02:36→11:04)
[2016-08-18 02:57] LABS: ABG BASE EXCESS -3.7 MMOL/L (-2.5-2.5); ABG HCO3 22 MMOL/L (23-27); ABG OXYGEN SATURATION 99 % (94-100); ABG PCO2 47 MMHG (35-45); ABG PO2 143 MMHG (79-93)
[2016-08-18 03:00] LABS: ALLENS TEST ART LINE
[2016-08-18] MEDS: methylPREDNISolone 125 MG (Solu-MEDROL) VIAL IVP SCH (03:51)
[2016-08-18] MEDS: inSUlin ASPART (NovoLOG) 1 UNIT/0.01 ML (CHARGE PER UNIT) SC SCH ×2 (03:51→08:30)
[2016-08-18] MEDS ORDERED: MAGNESIUM 1 GM/100 ML IVPB 100 ML IV SCH (06:00)
[2016-08-18] MEDS ORDERED: POTASSIUM CL 10MEQ/50ML IVPB 50 ML IV SCH (06:00)
[2016-08-18] MEDS ORDERED: KCL 20 MEQ TAB (K-DUR) PO SCH (06:00)
[2016-08-18 06:07] LABS: BASOPHILS % (AUTO) 0 % (0-10); EOSINOPHILS % (AUTO) 0 % (0-10); LYMPHOCYTES # (AUTO) 0.7 X 10^3 (1.0-4.0); LYMPHOCYTES % (AUTO) 3 % (12-44); MEAN CORPUSCULAR HEMOGLOBIN 30 PG (25-34); MEAN CORPUSCULAR HGB CONC 35 G/DL (32-36); MEAN CORPUSCULAR VOLUME 86 FL (80-99); MONOCYTES # (AUTO) 1.3 X 10^3 (0.0-1.0); MONOCYTES % (AUTO) 6 % (0-12); NEUTROPHILS % (AUTO) 92 % (42-75); PLATELET COUNT 235 10^3/uL (130-400); RED BLOOD COUNT 4.35 10^6/uL (4.35-5.85); RED CELL DISTRIBUTION WIDTH 14.6 % (10.0-14.5)
[2016-08-18 06:08] LABS: ABG BASE EXCESS -2.1 MMOL/L (-2.5-2.5); ABG HCO3 22 MMOL/L (23-27); ABG OXYGEN SATURATION 97 % (94-100); ABG PCO2 37 MMHG (35-45); ABG PH 7.39 (7.37-7.43); ABG PO2 81 MMHG (79-93); ABG TCO2 23.3 MMOL/L (21.0-31.0)
[2016-08-18 06:13] LABS: ALLENS TEST ART LINE; PATIENT TEMP 98.5
[2016-08-18 06:24] LABS: CALCIUM 7.8 MG/DL (8.5-10.1); CREATININE SERUM 1.45 MG/DL (0.60-1.30); MAGNESIUM 2.2 MG/DL (1.8-2.4); PHOSPHORUS 1.5 MG/DL (2.3-4.7); POTASSIUM 3.4 MMOL/L (3.6-5.0)
--- NOTE | 2016-08-18 07:46 | Diagnostic Imaging Report ---
Clinical indication: Patient with dyspnea. Exam: Portable chest x-ray upright view. Comparisons: Chest x-ray dated 08/17/2016. Findings: There is slight improved aeration of the right lung with continued patchy areas of consolidation involving both lungs (right side more than the left). There is no pleural effusion. Pulmonary vasculature is obscured. Cardiac silhouette enlarged. There is ET-tube again seen in stable position. Left central line is also seen in stable position. Orogastric tube is seen with its distal portion below the diaphragm, but not completely imaged. There are degenerative spurs seen throughout the spine. Impression: 1.: There is subtle improved aeration of the right lung with continued extensive bilateral lung infiltrates. 2: Stable lines and tubes. Dictated by: Dictated on workstation # [id number]
--- NOTE | 2016-08-18 07:52 | CONSULTATION REPORT ---
DATE OF CONSULTATION: 08/17/2016 ATTENDING PRIMARY CARE PHYSICIAN: Dr. Xiong. Mr. Evan Cary is a 60-year-old male with history of COPD. He presented to [facility] emergency department with shortness of breath, as well as worsening cough for the past few days. He did have a chest x-ray prior to admission which was not suggestive of pneumonia and he was started on Breo Ellipta as well as change in antihypertensive medications. He did have worsening of the dyspnea and was admitted and was found to have a right lower lobe consolidation, consistent with pneumonia. He initially had done well; however, did have spiked fevers and did have elevation in white count. His shortness of breath did also worsened as well. Due to his clinical status at this point, as well as potential for sepsis, he will need a central venous catheter for continued IV antibiotics, as well as possible transduction for CVP pressures and adequate fluid administration. PAST MEDICAL HISTORY: 1. COPD. 2. Anxiety. 3. Depression. 4. History of tendinitis. ALLERGIES: No known drug allergies. MEDICATIONS: 1. Nebivolol 10 mg daily 2. lisinopril 40 mg daily 3. Breo Ellipta 1 puff daily 4. chlorthalidone 12.5 mg daily PAST SURGERIES: 1. Full dental extraction. 2. Right ankle ORIF. FAMILY HISTORY: Mother, myocardial infarction at age 80. VITAL SIGNS: Temperature 100.1, blood pressure 178/102, pulse 92, respirations 40, pulse oximetry 92% and BiPAP. This is a well-nourished male currently slightly guarded secondary to his dyspnea. He has been experiencing worsening shortness of breath for the past 3 days, as well as a productive cough. No known chest pain, palpitations, or diaphoresis. No nausea, vomiting. No diarrhea, constipation. Intermittent fevers. No recent inadvertent weight loss. PHYSICAL EXAMINATION: CHEST: Decreased breath sounds with expiratory wheezes and rhonchi bilaterally. HEART: Regular. EXTREMITIES: No lower extremity edema. Negative Homans sign. HEENT: No scleral icterus. No cervical lymphadenopathy. ABDOMEN: Soft, nontender, nondistended. LABS: WBC 18.7, hemoglobin 13.9, hematocrit 40, platelets 221, lactic acid was 3.28. BUN 19, creatinine 1.2. ASSESSMENT AND PLAN: A 60-year-old male with pneumonia and developing sepsis criteria. He will require continued IV antibiotics, as well as other medications as well as essentials CVP monitoring for adequate fluid resuscitative measures. In the case of sepsis and hypertension, he also may need vasopressors. Due to these circumstances, he will need a central venous catheter, which we will place. Job ID: [id number] Dictated Date: 08/17/2016 17:35:22 Senior Hydrogeologist Date: 08/18/2016 07:42:56/guillermo
[2016-08-18] MEDS: NEBIVOLOL 5 MG TAB (BYSTOLIC) PO SCH (08:20)
[2016-08-18] MEDS: lisINopril 20 MG (ZESTRIL) TAB PO SCH (08:20)
[2016-08-18] MEDS: PANTOPRAZOLE 40 MG/10 ML (PROTONIX) VIAL IV SCH (08:20)
[2016-08-18] MEDS: CHLORTHALIDONE 25 MG (HYGROTON) TABLET PO SCH (08:20)
[2016-08-18] MEDS: CEFEPIME INJECTION 2,000 MG in NS (IVPB) 50 ML IV SCH (08:21)
[2016-08-18] MEDS: OSELTAMIVIR 75 MG (TAMIFLU) BOX OF 10 PO SCH (08:22)
[2016-08-18] MEDS: ENOXAPARIN 40 MG/0.4 ML (LOVENOX) SYR SC SCH (08:29)
[2016-08-18] MEDS ORDERED: CHLORHEXIDINE 0.12% SOLN 15 ML (PERIDEX) UDC PO SCH (09:00)
[2016-08-18] MEDS ORDERED: LEVOFLOXACIN 750 MG/D5W 150 ML PRE-MIX IV SCH (09:00)
[2016-08-18] MEDS ORDERED: TROUGH ORDER-PHARMACY XX NR (10:00)
[2016-08-18] MEDS ORDERED: LEVOFLOXACIN 750 MG TAB (LEVAQUIN) PO SCH (11:00)
--- NOTE | 2016-08-18 11:42 | PROCEDURE REPORT ---
PROCEDURE PHYSICIAN: CAMI MARTINEZ DATE OF ADMISSION: 08/16/2016 DATE OF PROCEDURE: 08/17/2016 ATTENDING PHYSICIAN: Dr. Lainey Xiong. PREPROCEDURE DIAGNOSIS: Pneumonia and sepsis. POSTPROCEDURE DIAGNOSIS: Pneumonia and sepsis. PROCEDURE: Placement left subclavian central venous catheter. SURGEON: Dr. Martinez. HEEL CURVER: Angelo Carter APRN. ANESTHESIA: Local. ESTIMATED BLOOD LOSS: Minimal. DISPOSITION: The patient tolerated the procedure well. Mr. Evan Cary is a 60-year-old male who has had worsening shortness of breath for the past 3 days, as well as worsening cough that was productive. His symptoms worsened and he was seen in the emergency department where he was found to have a right lower lobe pneumonia. He was initially admitted to the floor. However, due to worsening shortness of breath, as well as fevers and worsening leukocytosis and lactic acid he was transferred to the ICU. He is currently on BiPAP at 70%. Due to his pneumonia and impending sepsis criteria he will most likely need measurement CVP to guide adequate fluid, resuscitative measures, as well as IV antibiotics and possibly vasopressors. The chest and neck were prepped and draped in standard surgical fashion. 1% lidocaine was used to anesthetize the overlying skin in the left subclavian region. The left subclavian vein was then cannulated withdrawing of venous blood. The guidewire was then inserted without any resistance. The cannulating needle removed and a small skin incision was made using 11 blade. A tract was then created using a venous dilator. A triple lumen central venous catheter was then placed over the guidewire using the Seldinger technique. The guidewire was removed and all 3 ports lance venous blood and saline pushed in without any resistance. The catheter was then sutured to the skin of the chest wall using interrupted 3-0 silk sutures. The catheter was then cleaned and covered with sterile gauze, followed by OpSite. The patient tolerated the procedure well. We will get postprocedure chest x-ray. Job ID: [id number] Dictated Date: 08/17/2016 17:38:50 Convention Services Manager Date: 08/18/2016 11:34:49 / jc
--- NOTE | 2016-08-18 13:36 | Discharge Summary ---
Diagnosis/Chief Complaint Date of Admission Aug 16, 2016 at 4:40 am Date of Discharge Aug 18, 2016 at 11:59 am Admission Diagnosis Admission Diagnosis 1. RLL pnemonia with Sepsis 2. COPD 3. HTN Discharge Diagnosis 1. RLL pneumonia with sepsis - LA increased from admission up to 8 at which time worsening status and LA above 8 (although no hypotension) suggested severe sepsis, lactic acid decreased back to 2-3 after 30 ml/kg bolus 08/16 am but has continue to fluctuate up and down, remaining below 4 - Blood cultures pending (NGTD) - 08/16 am Cefepime, Vancomycin started and continue Levaquin - 08/16 am Tamiflu started to cover for possible influenza although rapid swab negative, given severity of illness and initial normal chest x-ray on admission. - Started on solumedrol on admission for underlying COPD exacerbation suspected , increased to 125 mg q6 when continue respiratory worsening. - Overnight 08/16 into 08/17 required bipap and had significant increased work of breathing in spite of relatively unremarkable ABG, so he was transferred to ICU and CTA was ordered which showed diffuse bilateral ground glass opacities concerning for pulmonary edema vs hemorrhage vs atypical infection and no evidence of PE. Furosemide 20 mg IV given 08/17 am for possible pulmonary edema with no clear benefit noted after. -Overnight 08/17 into 08/18 electively intubated per eICU recommendations, while continuing on levofloxacin, cefepime, vancomycin and oseltamivir as well as another dose of furosemide ordered. After intubation he had hypotension requiring levophed briefly (now titrated off and hypertensive again) so decision was made to transfer to [facility] this morning. At time of discharge , urine step and legionella antigens pending and respiratory viral panel pending. BNP was elevated and echo was ordered due to concern for cardiogenic edema versus ARDS to help delineate, but not done before transfer. 2. COPD - IV solumedrol - RT protocol 3. HTN - Telemetry - Cont OYSTER GROWER medications Chief Complaint/HPI Chief Complaint/HPI 60 yo male w/pmh of HTN, COPD comes to ED for SOB, orthopnea and severe cough x 2 days. Went to clinic Monday morning and had CXR that was not suggestive of pneumonia and had Symbicort switched to Breo and BP medications increase. Patient continued with worsening dyspnea and admitted for RLL pneumonia. Today he reports no improvement with SOB when walking, wheezing, non productive cough , constipation that is chronic and abdominal distention with early satiety. He denies headache, sore throat or ear pain, chest pain, melena or tarry stools, changes in urination or dysuria or LE edema. Discharge Summary-Simple/Stand Procedures Endotracheal intubation Central line placement Arterial line placement Consultations Discharge Physical Examination Allergies: Coded Allergies: No Known Drug Allergies (Unverified , 05/12/13) Vitals & I&Os Vital Sign - Last 12Hours Date Time Temp Pulse Resp B/P Pulse Ox O2 Delivery O2 Flow Rate FiO2 08/18/16 11:59 76 20 122/70 97 60 08/18/16 11:00 Mechanical Ventilator 60.00 08/18/16 08:18 97.7 Intake and Output 08/18/16 00:00 Intake Total 2060 ml Output Total 1525 ml Balance 535 ml General Appearance: Other (intubated, sedated, opens eyes to name) Respiratory: Other (ronchi) Cardiovascular: Regular Rate, No Murmurs Abdominal: Normal Bowel Sounds, Other (mild distention, improved from prior) Extremities: No Edema Hospital Course See final discharge diagnosis. Labs Laboratory Tests Test 08/16/16 21:44 08/16/16 22:55 08/16/16 23:40 08/17/16 02:10 Range/Units Lactic Acid Level 3.54 *H 3.88 *H 2.74 *H 0.50-2.00 MMOL/L Mati Test YES-POS Arterial Blood Base Excess -3.7 L -2.5-2.5 MMOL/L Arterial Blood HCO3 21 L 23-27 MMOL/L Arterial Blood Oxygen Saturation 98 94-100 % Arterial Blood Partial Pressure CO2 35 35-45 MMHG Arterial Blood Partial Pressure O2 87 79-93 MMHG Arterial Blood Total CO2 21.8 21.0-31.0 MMOL/L Arterial Blood pH 7.38 7.37-7.43 Blood Gas Inspired Oxygen 40% BIPAP Blood Gas Patient Temperature 97.6 Blood Gas Puncture Site LRAD Blood Gas Ventilator Setting NO Test 08/17/16 04:13 08/17/16 09:57 08/17/16 12:25 08/17/16 12:43 Range/Units Alanine Aminotransferase (ALT/SGPT) 43 0-55 U/L Albumin 3.3 3.2-4.5 G/DL Alkaline Phosphatase 74 40-136 U/L Anion Gap 12 5-14 MMOL/L Aspartate Amino Transf (AST/SGOT) 38 H 5-34 U/L BUN/Creatinine Ratio 16 Band Neutrophils 3 % Basophils # (Auto) 0.0 0.0-0.1 10^3/uL Basophils % (Manual) 0 % Basophils (%) (Auto) 0 0-10 % Blood Morphology Comment NORMAL Blood Urea Nitrogen 19 H 7-18 MG/DL Calcium Level 8.5 8.5-10.1 MG/DL Carbon Dioxide Level 22 21-32 MMOL/L Chloride Level 109 H 98-107 MMOL/L Creatinine 1.21 0.60-1.30 MG/DL Eosinophils # (Auto) 0.0 0.0-0.3 10^3/uL Eosinophils % (Manual) 0 % Eosinophils (%) (Auto) 0 0-10 % Estimat Glomerular Filtration Rate > 60 Glucose Level 175 H 70-105 MG/DL Hematocrit 40 40-54 % Hemoglobin 13.9 13.3-17.7 G/DL Lactic Acid Level 2.85 *H 3.75 *H 3.95 *H 0.50-2.00 MMOL/L Lymphocytes # (Auto) 1.0 1.0-4.0 X 10^3 Lymphocytes % (Manual) 6 % Lymphocytes (%) (Auto) 5 L 12-44 % Mean Corpuscular Hemoglobin 29 25-34 PG Mean Corpuscular Hemoglobin Concent 35 32-36 G/DL Mean Corpuscular Volume 85 80-99 FL Mean Platelet Volume 9.8 7.4-10.4 FL Monocytes # (Auto) 1.0 0.0-1.0 X 10^3 Monocytes % (Manual) 5 % Monocytes (%) (Auto) 5 0-12 % Neutrophils # (Auto) 16.7 H 1.8-7.8 X 10^3 Neutrophils % (Manual) 84 % Neutrophils (%) (Auto) 89 H 42-75 % Platelet Count 221 130-400 10^3/uL Potassium Level 3.5 L 3.6-5.0 MMOL/L Reactive Lymphocytes 2 % Red Blood Count 4.73 4.35-5.85 10^6/uL Red Cell Distribution Width 14.2 10.0-14.5 % Sodium Level 143 135-145 MMOL/L Total Bilirubin 0.8 0.1-1.0 MG/DL Total Protein 6.5 6.4-8.2 G/DL White Blood Count 18.7 H 4.3-11.0 10^3/uL Vancomycin Level Trough 17.2 10.0-20.0 UG/ML Mati Test POSITIVE Arterial Blood Base Excess -3.8 L -2.5-2.5 MMOL/L Arterial Blood HCO3 20 L 23-27 MMOL/L Arterial Blood Oxygen Saturation 95 94-100 % Arterial Blood Partial Pressure CO2 35 35-45 MMHG Arterial Blood Partial Pressure O2 72 L 79-93 MMHG Arterial Blood Total CO2 21.4 21.0-31.0 MMOL/L Arterial Blood pH 7.38 7.37-7.43 Blood Gas Inspired Oxygen 50% F102 Blood Gas Patient Temperature 99.3 Blood Gas Puncture Site RIGHT WRIST Blood Gas Ventilator Setting NO Test 08/17/16 15:55 08/17/16 18:20 08/17/16 22:55 08/17/16 23:48 Range/Units Lactic Acid Level 3.28 *H 3.69 *H 3.21 *H 0.50-2.00 MMOL/L Albumin 3.0 L 3.2-4.5 G/DL Anion Gap 13 5-14 MMOL/L B-Type Natriuretic Peptide 796.1 H <100.0 PG/ML BUN/Creatinine Ratio 17 Blood Urea Nitrogen 25 H 7-18 MG/DL Calcium Level 7.8 L 8.5-10.1 MG/DL Carbon Dioxide Level 19 L 21-32 MMOL/L Chloride Level 107 98-107 MMOL/L Creatinine 1.45 H 0.60-1.30 MG/DL Estimat Glomerular Filtration Rate 49 Glucose Level 211 H 70-105 MG/DL Magnesium Level 1.4 L 1.8-2.4 MG/DL Potassium Level 3.5 L 3.6-5.0 MMOL/L Sodium Level 139 135-145 MMOL/L Troponin I 0.31 *H <0.30 NG/ML Glucometer 199 H 70-110 MG/DL Test 08/18/16 02:43 08/18/16 03:40 08/18/16 03:50 08/18/16 05:55 Range/Units Mati Test ART LINE ART LINE Arterial Blood Base Excess -3.7 L -2.1 -2.5-2.5 MMOL/L Arterial Blood HCO3 22 L 22 L 23-27 MMOL/L Arterial Blood Oxygen Saturation 99 97 94-100 % Arterial Blood Partial Pressure CO2 47 H 37 35-45 MMHG Arterial Blood Partial Pressure O2 143 H 81 79-93 MMHG Arterial Blood Total CO2 23.0 23.3 21.0-31.0 MMOL/L Arterial Blood pH 7.30 *L 7.39 7.37-7.43 Blood Gas Inspired Oxygen 90% 60% Blood Gas Patient Temperature 100.0 98.5 Blood Gas Puncture Site ARTLINE LT RADIAL ARTLINE Blood Gas Ventilator Setting YES YES Lactic Acid Level 3.25 *H 2.81 *H 0.50-2.00 MMOL/L Glucometer 224 H 70-110 MG/DL Anion Gap 11 5-14 MMOL/L BUN/Creatinine Ratio 19 Basophils # (Auto) 0.0 0.0-0.1 10^3/uL Basophils (%) (Auto) 0 0-10 % Blood Urea Nitrogen 27 H 7-18 MG/DL Calcium Level 7.8 L 8.5-10.1 MG/DL Carbon Dioxide Level 20 L 21-32 MMOL/L Chloride Level 109 H 98-107 MMOL/L Creatinine 1.45 H 0.60-1.30 MG/DL Eosinophils # (Auto) 0.0 0.0-0.3 10^3/uL Eosinophils (%) (Auto) 0 0-10 % Estimat Glomerular Filtration Rate 49 Glucose Level 255 H 70-105 MG/DL Hematocrit 37 L 40-54 % Hemoglobin 12.9 L 13.3-17.7 G/DL Lymphocytes # (Auto) 0.7 L 1.0-4.0 X 10^3 Lymphocytes (%) (Auto) 3 L 12-44 % Magnesium Level 2.2 1.8-2.4 MG/DL Mean Corpuscular Hemoglobin 30 25-34 PG Mean Corpuscular Hemoglobin Concent 35 32-36 G/DL Mean Corpuscular Volume 86 80-99 FL Mean Platelet Volume 10.0 7.4-10.4 FL Monocytes # (Auto) 1.3 H 0.0-1.0 X 10^3 Monocytes (%) (Auto) 6 0-12 % Neutrophils # (Auto) 21.0 H 1.8-7.8 X 10^3 Neutrophils (%) (Auto) 92 H 42-75 % Phosphorus Level 1.5 L 2.3-4.7 MG/DL Platelet Count 235 130-400 10^3/uL Potassium Level 3.4 L 3.6-5.0 MMOL/L Red Blood Count 4.35 4.35-5.85 10^6/uL Red Cell Distribution Width 14.6 H 10.0-14.5 % Sodium Level 140 135-145 MMOL/L White Blood Count 23.0 H 4.3-11.0 10^3/uL Test 08/18/16 08:14 08/18/16 08:15 08/18/16 10:12 Range/Units Glucometer 247 H 70-110 MG/DL Lactic Acid Level 2.29 *H 0.50-2.00 MMOL/L Vancomycin Level Trough 23.6 H 10.0-20.0 UG/ML Radiology Reviewed CT chest ordered Vital Signs Date Time Temp Pulse Resp B/P Pulse Ox O2 Delivery O2 Flow Rate FiO2 08/17/16 09:43 92 26 93 50.00 08/17/16 08:12 103 30 88 40.00 08/17/16 08:00 98.5 75 26 174/94 95 NIV/Bilevel 08/17/16 06:45 96 40 08/17/16 06:30 79 25 95 40.00 08/17/16 05:29 79 30 96 40.00 08/17/16 04:00 97.5 76 26 155/77 97 NIV/Bilevel 08/17/16 03:58 79 27 96 40.00 08/17/16 02:09 85 20 94 40.00 08/17/16 00:16 31 40.00 08/17/16 00:00 98.5 78 25 166/81 97 NIV/Bilevel 08/16/16 22:55 24 40.00 08/16/16 21:59 90 5.00 08/16/16 21:00 Nasal Cannula 5.00 08/16/16 20:00 98.4 86 22 151/80 94 Nasal Cannula 2.00 08/16/16 18:42 92 08/16/16 16:51 87 3.00 08/16/16 16:51 87 08/16/16 16:00 97.9 73 22 159/74 92 Nasal Cannula 2.00 I & O 08/17/16 07:00 Intake Total 7325 ml Output Total 1300 ml Balance 6025 ml Discharge Condition at discharge Critical, transferred to [facility] Instructions to patient/family Please see electonic discharge instructions given to patient. Discharge Medications Reviewed and agree with Discharge Medication list on patient's Discharge Instruction sheet Clinical Quality Measures DVT/VTE Risk/Contraindication: Risk Factor Score Per Nursin RFS Level Per Nursing on Admit: 4+=Very High Copy Copies To 1: ANN Ledezma BETHANY N MD Aug 18, 2016 13:36
[2016-08-18] MEDS ORDERED: VANCOMYCIN 1 GM/NS 250 ML IVPB IV SCH ×2 (22:00)
[2016-08-19 07:53] LABS: LEGIONELLA PNEU ANTIGEN URINE Negative; STREP PNEUMOCOCCUS ANTIG Negative
[2016-08-20] MEDS ORDERED: TROUGH ORDER-PHARMACY XX NR (09:00)
== END 2016-08-18 11:59 | disposition short-term general hospital (02) | DRG 871 ==
LOC: EDUNIT# 03:27 → ER 03:30 → 4TH 04:40 → ICU 08-17 11:20
PROVIDERS: ADMIT Family Medicine; ATTEND Family Medicine
PROC: 5A1935Z Respiratory Ventilation, Less than 24 Consecutive Hours (ICD-10-PCS; principal; 2016-08-17)
DX: A41.9 Sepsis, unspecified organism (principal); J44.0 Chronic obstructive pulmonary disease with (acute) lower respiratory infection; J18.9 Pneumonia, unspecified organism; J44.1 Chronic obstructive pulmonary disease with (acute) exacerbation; J81.1 Chronic pulmonary edema; R04.2 Hemoptysis; I95.9 Hypotension, unspecified; E87.6 Hypokalemia; I10 Essential (primary) hypertension; K59.09 Other constipation; F41.9 Anxiety disorder, unspecified; F32.9 Major depressive disorder, single episode, unspecified; M19.91 Primary osteoarthritis, unspecified site
CPT/HCPCS: 36415; 71010; 71275; 74020; 80048; 80053; 80202; 81000; 82040; 82805; 82962; 83605; 83735; 83880; 84100; 84484; 85007; 85025; 85027; 85610; 85730; 87040; 87070; 87081; 87205; 87449; 87804; 87899; 94002; 94010; 94640; 94660; 94760; 94799; 96365; 96375